=== PATIENT | female | born 1970 | race African-American/Black ===

== ENCOUNTER → 2019-05-05 | Outpatient (CLI) | payer BC, SELFPAY ==
--- NOTE | 2019-05-05 13:00 | US_ITS ---
STUDY: THYROID ULTRASOUND REASON FOR EXAM: Female, 49 years old. Goiter. TECHNIQUE: Ultrasound evaluation of the thyroid was performed with real-time and static eduardo-scale imaging. COMPARISON: None. FINDINGS: RIGHT LOBE: The right lobe of the thyroid gland measures 4.6 x 1.7 x 1.6 cm. There is a heterogeneous echotexture. There is a 0.4 x 0.4 x 0.2 cm mixed cystic and solid nodule in the lower pole. There is normal vascularity on Doppler imaging. LEFT LOBE: The left lobe of the thyroid gland measures 5.4 x 2.8 x 2.5 cm. There is a heterogeneous echotexture. There is a questionable 1.3 x 1.2 x 0.8 cm isoechoic nodule in the lower pole. This may simply be an area of heterogeneity. There is normal vascularity on Doppler imaging. ISTHMUS: The isthmus measures 0.8 cm. There is a solid isoechoic nodule with hypoechoic rim and central irregular areas of hypoechogenicity in the right isthmus measuring 1.4 x 1.1 x 1.1 cm. This demonstrates interval nodular vascularity. The regional lymph nodes are normal. US/Thyroid IMPRESSION: Prominent heterogenous thyroid with nodules as described above. Largest nodule is categorized as TR 3, mildly suspicious. This does not require further follow-up by ACR TI-RADS criteria. Electronically Signed: Kingston López DO at 18:23 EDT Tel [phone], Service support ,
== END | disposition home or self-care (01) ==
LOC: US 12:57
PROVIDERS: Family Provider Nurse Practitioner; PCP Nurse Practitioner; Referring Provider Nurse Practitioner; Visit Provider Nurse Practitioner
DX: E04.9 Nontoxic goiter, unspecified (principal)
CPT/HCPCS: 76536

== ENCOUNTER → 2019-05-16 15:32 | Outpatient (CLI) | payer BC, SELFPAY ==
--- NOTE | 2019-05-16 15:37 | RAD_ITS ---
STUDY: X-RAY CHEST REASON FOR EXAM: Female, 49 years old. Shortness of breath, worse on exertion. TECHNIQUE: Frontal and lateral views of the chest. COMPARISON: None. FINDINGS: The lungs are clear and expanded. There is no demonstrated pleural abnormality. Normal size heart. Normal mediastinum and manish. Normal visualized pulmonary arteries. Normal visualized aortic arch and descending thoracic aorta. Normal visualized thoracic spine. Normal visualized ribs, clavicles, and shoulders. There is no demonstrated abnormality of the visualized soft tissue structures of the upper abdomen. RAD/Chest PA and Lateral IMPRESSION: No active or acute cardiopulmonary disease. Electronically Signed: Jai Gan MD at 16:02 EDT , Service support ,
== END ==
PROVIDERS: Family Provider Nurse Practitioner; PCP Nurse Practitioner; Referring Provider Nurse Practitioner; Visit Provider Nurse Practitioner
DX: R06.02 Shortness of breath (principal)
CPT/HCPCS: 71046

== ENCOUNTER → 2019-05-28 15:12 | Outpatient (CLI) | payer BC, SELFPAY | LOC: CVS 15:13 | PROVIDERS: Family Provider Nurse Practitioner; PCP Nurse Practitioner; Referring Provider Nurse Practitioner; Visit Provider Nurse Practitioner | DX: R94.31 Abnormal electrocardiogram [ECG] [EKG] (principal) | CPT/HCPCS: 93306 ==

== ENCOUNTER → 2020-11-30 17:00 | Outpatient (CLI) | payer BC, SELFPAY ==
--- NOTE | 2020-11-30 16:43 | BI_ITS ---
MAMMOGRAPHY - BILATERAL SCREENING REASON FOR EXAM: Female, 50 years old. Routine annual screening examination. PERTINENT HISTORY: Aunt with breast cancer. TECHNIQUE: Digital bilateral breast lizbeth (3D mammographic acquisition) in the CC and MLO projections. 2-D mediolateral oblique (MLO) and craniocaudad (CC) views of both breasts were obtained. CAD: Full Field Digital Mammography with Computer Added Detection was performed. COMPARISON: Comparison is made with prior study dated 04/20/2014. FINDINGS: Breast Composition: The breasts are almost entirely fatty. There are no dominant masses or suspicious calcifications. No other significant abnormalities are identified. There has been no significant change since the prior study. BI/SCRN MAMM (CAD)W/LIZBETH BILAT IMPRESSION: Stable bilateral screening mammogram. Yearly follow-up mammogram recommended. (A) ASSESSMENT CATEGORY: BIRADS Category 1: Negative. A letter regarding these results will be sent to the patient by the facility within 30 days. Approximately 10% of breast cancers are not detected by mammography. A normal mammogram should not delay biopsy of a clinically suspicious abnormality. [id number] Electronically Signed: Ayaz Fu MD at 8:38 EST , Service support ,
== END ==
PROVIDERS: PCP Nurse Practitioner; Referring Provider Nurse Practitioner; Visit Provider Nurse Practitioner
DX: Z12.31 Encounter for screening mammogram for malignant neoplasm of breast (principal)
CPT/HCPCS: 77063; 77067

== ENCOUNTER 2021-01-20 12:59 | Outpatient (CLI) | payer BC, SELFPAY ==
[2021-01-19 13:27] VITALS: BMI 46.7
[2021-01-20 13:15] VITALS: BP 157/83; PULSE 71; RESP 16; TEMP 36; O2SAT 100; BMI 45.1
[2021-01-20 14:20] VITALS: BP 136/81; PULSE 63; RESP 16; TEMP 36.1; O2SAT 99
[2021-01-20 14:50] VITALS: BP 142/75; PULSE 69; RESP 16; TEMP 36; O2SAT 99
[2021-01-20 15:11] VITALS: BP 126/67; PULSE 63; RESP 16; TEMP 36.1; O2SAT 98
[2021-01-20 15:41] VITALS: BP 144/77; PULSE 65; RESP 16; TEMP 36; O2SAT 99
[2021-01-20 16:11] VITALS: BP 120/75; PULSE 73; RESP 16; TEMP 35.9; O2SAT 99
== END 2021-01-20 16:25 | disposition home or self-care (01) ==
LOC: MS2OUT 13:00 → MS2 13:01
PROVIDERS: PCP Nurse Practitioner; Referring Provider Nurse Practitioner Acute Care; Visit Provider Nurse Practitioner Acute Care
DX: U07.1 COVID-19 (principal)
CPT/HCPCS: J7050; M0239; Q0245

== ENCOUNTER → 2021-03-23 13:49 | Outpatient (CLI) | payer BC, SELFPAY ==
--- NOTE | 2021-03-23 13:52 | ECHOL_ITS ---
Reason For Study: Narrowed Pulse Pressure, other Signs/symptoms involving circulatory and respiratory systems Procedure This was a limited 2D transthoracic echocardiogram. Exam performed in department. Left Ventricle Normal LV size. Left ventricular systolic function is normal. The estimated ejection fraction is 60 %. No regional wall motion abnormalities noted. Right Ventricle Normal RV size. Normal systolic function. Atria Normal left atrium. Normal right atrium. Mitral Valve Normal mitral valve. Tricuspid Valve Normal tricuspid valve. Aortic Valve Normal aortic valve. Trisinus/trileaflet aortic valve. Pulmonic Valve Normal pulmonic valve. Great Vessels Normal aortic root. The pulmonary artery is normal size. Normal inferior vena cava. Pericardium/Pleural No pericardial effusion. MMode/2D Measurements & Calculations LVIDd: 4.9 cm IVSd: 1.2 cm Ao root diam: 2.7 cm LVIDs: 2.8 cm LVPWd: 0.99 cm RVDd: 3.2 cm FS: 44.2 % LAV(MOD-bp): 46.2 ml LA A4 area: 15.7 cm2 LA dimension(2D): 3.9 cm LAV(MOD-bp) Indexed: 21.8 ml/m2 LAV(MOD-sp2): 46.9 ml LAV(MOD-sp4): 44.2 ml RA A4 area: 13.7 cm2 ECHO/Echo, Limited Study Interpretation Summary Normal LV size. Left ventricular systolic function is normal. The estimated ejection fraction is 60 %. Structurally normal valves. Ordering Physician: Macarena Woodard Referring Physician: Macarena Woodard Performed By: Chery Olea, KATIA, RVT
== END ==
LOC: CVS 13:50
PROVIDERS: PCP Nurse Practitioner; Referring Provider Nurse Practitioner; Visit Provider Nurse Practitioner
DX: R09.89 Other specified symptoms and signs involving the circulatory and respiratory systems (principal)
CPT/HCPCS: 93308

== ENCOUNTER → 2021-10-20 07:16 | Outpatient (CLI) | payer BC, SELFPAY ==
[2021-10-20 11:01] LABS: Absolute Lymphocyte Count 3.22 X10^3/uL (0.83-4.51); Absolute Neutrophil Count 5.6 X10^3/uL (2.0-7.7); Basophil# 0.05 X10^3/uL; Basophil% 0.5 % (0-1); Eosinophil# 0.36 X10^3/uL; Eosinophils% 3.6 % (0-5); Hematocrit 40.5 % (37-47); Lymphocyte # 3.22 X10^3/ul (0.83-4.51); Lymphocyte % 32.4 % (19-41); Mean Corp Hgb Conc 32.1 g/dL (32-36); Mean Corpuscular Hgb 24.3 pg (27.0-32.0); Mean Corpuscular Volume 75.8 fL (81-99); Monocyte# 0.65 X10^3/uL; Monocyte% 6.5 % (0-10); NRBC Flagged by Analyzer 0 % (0-5); Neutrophil # 5.61 X10^3/uL (2.7-7.7); Neutrophil % 56.5 % (47-70); Platelet Count 235 K/mm3 (150-450); RBC Distribution Width CV 16.9 % (11.6-14.6); RBC Distribution Width SD 45.7 fl (35.1-43.9); Red Blood Count 5.34 M/mm3 (4.2-5.4); White Blood Count 9.9 K/mm3 (4.4-11.0)
[2021-10-20 11:20] LABS: Vitamin B12 216 pg/mL (211-911); Vitamin D,25 Hydroxy 34.3 ng/mL
[2021-10-20 11:29] LABS: ALB/GLOB Ratio 0.9 RATIO (0.9-2.4); AST(SGOT) 13 U/L (15-37); Alanine Aminotransfer ALT/SGPT 24 U/L (13-56); Albumin, Serum 3.5 g/dL (3.2-5.0); Alkaline Phosphatase 73 U/L (45-117); Anion Gap 5 (5-15); BUN 8 mg/dL (7-18); BUN/Creat Ratio 7.6 RATIO (10-20); Chloride 107 mmol/L (98-107); Cholesterol 173 mg/dL (200); Creatinine, Serum 1.05 mg/dL (0.55-1.02); EST Glomerular Filtration Rate 58 mL/min (>60); Est Glom Filt Rate - Afr Amer 70 mL/min (>60); Glucose 113 mg/dL (74-106); High Density Lipoprotein 32 mg/dL; Potassium 3.9 mmol/L (3.5-5.1); Protein, Total 7.5 g/dL (6.4-8.2); Sodium Level 140 mmol/L (136-145); Triglycerides 121 mg/dL; Very Low Density Lipoprotein 24 mg/dL (5-40)
== END ==
PROVIDERS: PCP Nurse Practitioner; Referring Provider Nurse Practitioner; Visit Provider Nurse Practitioner
DX: E11.65 Type 2 diabetes mellitus with hyperglycemia (principal)
CPT/HCPCS: 36415; 80053; 80061; 82306; 82607; 82746; 84443; 85025

== ENCOUNTER → 2022-08-29 | Outpatient (CLI) | payer OTHER, SELFPAY ==
[2022-08-29 10:03] LABS: Absolute Lymphocyte Count 3.94 X10^3/uL (0.83-4.51); Absolute Neutrophil Count 4.5 X10^3/uL (2.0-7.7); Basophil# 0.04 X10^3/uL; Basophil% 0.4 % (0-1); Eosinophil# 0.42 X10^3/uL; Eosinophils% 4.4 % (0-5); Hematocrit 40.1 % (37-47); Lymphocyte # 3.94 X10^3/ul (0.83-4.51); Lymphocyte % 41.4 % (19-41); Mean Corp Hgb Conc 32.4 g/dL (32-36); Mean Corpuscular Hgb 24.4 pg (27.0-32.0); Mean Corpuscular Volume 75.4 fL (81-99); Mean Platelet Vol. 11.9 fl (6.2-12.0); Monocyte# 0.54 X10^3/uL; Monocyte% 5.7 % (0-10); NRBC Flagged by Analyzer 0 % (0-5); Neutrophil # 4.54 X10^3/uL (2.7-7.7); Neutrophil % 47.7 % (47-70); Platelet Count 216 K/mm3 (150-450); RBC Distribution Width CV 16.1 % (11.6-14.6); RBC Distribution Width SD 43.6 fl (35.1-43.9); Red Blood Count 5.32 M/mm3 (4.2-5.4); White Blood Count 9.5 K/mm3 (4.4-11.0)
[2022-08-29 10:27] LABS: Vitamin B12 865 pg/mL (211-911); Vitamin D,25 Hydroxy 33.6 ng/mL
[2022-08-29 10:38] LABS: Hemoglobin A1c 6.6 % (3.8-5.6)
[2022-08-29 10:41] LABS: ALB/GLOB Ratio 0.9 RATIO (0.9-2.4); AST(SGOT) 13 U/L (15-37); Alanine Aminotransfer ALT/SGPT 23 U/L (13-56); Albumin, Serum 3.6 g/dL (3.2-5.0); Alkaline Phosphatase 67 U/L (45-117); Anion Gap 5 (5-15); BUN 9 mg/dL (7-18); BUN/Creat Ratio 8.2 RATIO (10-20); Calcium,Total 9.2 mg/dL (8.5-10.1); Chloride 109 mmol/L (98-107); Cholesterol 186 mg/dL (200); EST Glomerular Filtration Rate 55 mL/min (>60); Est Glom Filt Rate - Afr Amer 67 mL/min (>60); Globulin 3.8 g/dL (2.2-4.2); Glucose 120 mg/dL (74-106); High Density Lipoprotein 29 mg/dL; Potassium 3.9 mmol/L (3.5-5.1); Protein, Total 7.4 g/dL (6.4-8.2); Sodium Level 140 mmol/L (136-145); Thyroid Stim Hormone (TSH) 2.01 uIU/mL (0.358-3.74); Triglycerides 156 mg/dL; Very Low Density Lipoprotein 31 mg/dL (5-40)
== END | disposition home or self-care (01) ==
PROVIDERS: PCP Nurse Practitioner Family; Referring Provider Nurse Practitioner Family; Visit Provider Nurse Practitioner Family
DX: E11.9 Type 2 diabetes mellitus without complications (principal); E53.8 Deficiency of other specified B group vitamins
CPT/HCPCS: 36415; 80053; 80061; 82306; 82607; 82746; 83036; 84443; 85025

== ENCOUNTER → 2022-12-01 | Outpatient (CLI) | payer OTHER, SELFPAY ==
--- NOTE | 2022-12-01 09:37 | BI_ITS ---
MAMMOGRAPHY - BILATERAL SCREENING REASON FOR EXAM: Female, 52 years old. Routine annual screening examination. PERTINENT HISTORY: Aunt with breast cancer. TECHNIQUE: Digital bilateral breast lizbeth (3D mammographic acquisition) in the CC and MLO projections. 2-D mediolateral oblique (MLO) and craniocaudad (CC) views of both breasts were obtained. CAD: Full Field Digital Mammography with Computer Added Detection was performed. COMPARISON: Comparison is made with prior study dated 11/30/2020 and 04/20/2014. FINDINGS: Breast Composition: The breasts are almost entirely fatty. There are no dominant masses or suspicious calcifications. No other significant abnormalities are identified. There has been no significant change since the prior study. BI/SCRN MAMM (CAD)W/LIZBETH BILAT IMPRESSION: Stable bilateral screening mammogram. Yearly follow-up mammogram recommended. (A) ASSESSMENT CATEGORY: BIRADS Category 1: Negative. A letter regarding these results will be sent to the patient by the facility within 30 days. Approximately 10% of breast cancers are not detected by mammography. A normal mammogram should not delay biopsy of a clinically suspicious abnormality. [id number] Electronically Signed: Ayaz Fu MD at 11:01 EST ,
== END | disposition home or self-care (01) ==
PROVIDERS: PCP Nurse Practitioner Family; Referring Provider Nurse Practitioner Family; Visit Provider Nurse Practitioner Family
DX: Z12.31 Encounter for screening mammogram for malignant neoplasm of breast (principal); Z80.3 Family history of malignant neoplasm of breast
CPT/HCPCS: 77063; 77067

== ENCOUNTER → 2023-03-29 | Outpatient (CLI) | payer OTHER, SELFPAY ==
--- NOTE | 2023-03-29 14:29 | US_ITS ---
STUDY: THYROID ULTRASOUND REASON FOR EXAM: Female, 52 years old. Thyroid nodule. Large thyroid on physical exam. TECHNIQUE: Ultrasound evaluation of the thyroid was performed with real-time and static eduardo-scale imaging. COMPARISON: May 05, 2019. FINDINGS: RIGHT LOBE: The right lobe of the thyroid gland measures 4.8 x 1.8 x 1.8 cm. There is a heterogeneous echotexture. There is a 0.9 x 0.8 x 0.7 soft tissue mass in the medial thyroid which may be part of a large mass seen in the right isthmus. This is isoechoic with small adjacent cystic structure. LEFT LOBE: The left lobe of the thyroid gland measures 6.0 x 2.9 x 3 point cm. There is a heterogeneous echotexture. There are multiple foci which may represent nodules. The largest measures 2.1 x 2.3 x 2.1 cm and is isoechoic to the remainder of the thyroid. ISTHMUS: The isthmus measures 0.9 cm in the right isthmus there is a mixed solid and cystic 1.6 x 1.6 x 1.5 cm nodule. The regional lymph nodes are normal. US/Thyroid IMPRESSION: Absence of a small hypoechoic anechoic nodule in the right thyroid seen on the previous study. Remainder of the findings appear grossly normal and unchanged. The nodules are considered mildly suspicious, TR 3. Follow-up ultrasound at 2 and 4 years is recommended. Electronically Signed: Kingston López DO at 19:06 EDT ,
== END | disposition home or self-care (01) ==
LOC: US 14:27
PROVIDERS: PCP Nurse Practitioner Family; Referring Provider Nurse Practitioner Family; Visit Provider Nurse Practitioner Family
DX: E04.1 Nontoxic single thyroid nodule (principal)
CPT/HCPCS: 76536

== ENCOUNTER → 2024-01-09 | Outpatient (CLI) | payer OTHER, SELFPAY ==
--- NOTE | 2024-01-09 16:15 | BI_ITS ---
MAMMOGRAPHY - BILATERAL SCREENING REASON FOR EXAM: Female, 53 years old. Routine annual screening examination. PERTINENT HISTORY: Aunt with breast cancer. TECHNIQUE: Digital bilateral breast lizbeth (3D mammographic acquisition) in the CC and MLO projections. 2-D mediolateral oblique (MLO) and craniocaudad (CC) views of both breasts were obtained. CAD: Full Field Digital Mammography with Computer Added Detection was performed. COMPARISON: Comparison is made with prior study dated December 01, 2022. FINDINGS: Breast Composition: The breasts are almost entirely fatty. There are no dominant masses or suspicious calcifications. No other significant abnormalities are identified. There has been no significant change since the prior study. BI/SCRN MAMM (CAD)W/LIZBETH BILAT IMPRESSION: Stable bilateral screening mammogram. Yearly follow-up mammogram recommended. (A) ASSESSMENT CATEGORY: BIRADS Category 1: Negative. A letter regarding these results will be sent to the patient by the facility within 30 days. Approximately 10% of breast cancers are not detected by mammography. A normal mammogram should not delay biopsy of a clinically suspicious abnormality. [id number] Electronically Signed: Ayaz Fu MD at 8:41 EST ,
== END | disposition home or self-care (01) ==
LOC: OPBI 16:15
PROVIDERS: PCP Nurse Practitioner Family; Referring Provider Nurse Practitioner Family; Visit Provider Nurse Practitioner Family
DX: Z12.31 Encounter for screening mammogram for malignant neoplasm of breast (principal)
CPT/HCPCS: 77063; 77067

== ENCOUNTER → 2025-04-09 | Outpatient (CLI) | payer OTHER, SELFPAY ==
--- NOTE | 2025-04-09 13:53 | BI_ITS ---
EXAM: SCRN MAMM (CAD)W/LIZBETH BILAT DATE: 04/09/2025 CLINICAL HISTORY: F, Age 55 y/o , SCRN MAMM (CAD)W/LIZBETH BILAT Aunt with breast cancer. BREAST CANCER RISK ASSESSMENT: Not assessed. TECHNIQUE: Bilateral screening digital breast tomosynthesis with 2D and 3D images. Computer aided detection. COMPARISON: Prior exam(s) dated prior study dated January 10, 2024.. FINDINGS: TISSUE DENSITY: The breast tissue is almost entirely fatty. Bilateral Breast Mammographic Findings: No significant masses, calcifications or other abnormalities are identified. No suspicious masses, areas of developing architectural distortion, or suspicious calcifications. There has been no significant interval change. BI/SCRN MAMM (CAD)W/LIBZETH BILAT IMPRESSION: OVERALL FINAL ASSESSMENT: BIRADS 1 NEGATIVE RECOMMENDATION: Routine annual follow-up in 1 Year A letter with findings and recommendations will be mailed to the patient. Reading Location: [facility]
== END | disposition home or self-care (01) ==
LOC: OPBI 13:52
PROVIDERS: PCP Nurse Practitioner Family; Referring Provider Nurse Practitioner Family; Visit Provider Nurse Practitioner Family
DX: Z12.31 Encounter for screening mammogram for malignant neoplasm of breast (principal)
CPT/HCPCS: 77063; 77067

== ENCOUNTER → 2025-08-10 | Outpatient (CLI) | payer OTHER, SELFPAY ==
--- OUTSIDE RECORDS SUMMARY | 2025-05-19 06:09 | XMS RPT_ITS ---
Author Name Auto Generated Organization OH[facility] Care Team Providers Care Applique Sewer Name Role Phone SINA MENDEZ, MAXIMILIAN Primary Care Unavail jacky PANDYA MD, DR MOISE Garza Attending Unavailab VAISHALI Miranda DO Attending Unavailable SHE SANCHEZ, DR MORALES Primary Care Unavailab kelley MENDEZ, MAXIMILIAN Primary Care Unavail jacky SALMERON DO, EMILIE Oliva Attending Unavailable PROBLEMS No Problem Records Found PROCEDURES No Procedure Records Found RESULTS XR FLUORO GUIDANCE FOR THERAPY INJECTION Observed: 05/19/2025 9:46 AM Status: F Source: [facility] ORIGINAL Images acquired, not reported on this accession number. CUR Observed: 09/27/2024 4:12 PM Status: F Source: [facility] . MICRO - Microbiology PROCEDURE: Urine Culture [O1 *1] SOURCE: Urine BODY SITE: COLLECTED DATE/TIME: 09/27/2024 16:12 EST RECEIVED DATE/TIME: 09/28/2024 14:18 EST START DATE/TIME: 09/28/2024 14:18 EST FREE TEXT SOURCE: FINAL REPORTS Final Report [] Verified Date/Time/Personnel: 09/30/2024 07:30 EST No growth at 48 hours. PRELIMINARY REPORTS Preliminary Report [] Verified Date/Time/Personnel: 09/29/2024 07:23 EST No growth to date Order Comments O1: Urine Culture Added by Discern Performing Locations *1: This test was performed at: [facility], [address] [place] [address], [id number] , [place] UA Collected: 09/27/2024 4:12 PM Status: F Source: [facility] TYPE CODE TESTS RESULT OUT OF RANGE REFERENCE UNITS LAB SPCUA(LOINC) UA Specimen Type Clean Catch LAB CLRUA(LOINC) UA Color Yellow LAB APPUA(LOINC) UA Appear Slightly Cloudy Abnormal Clear LAB SGUA(LOINC) UA Spec Grav 1.020 1.015-1.025 LAB GLUA(LOINC) UA Glucose Negative Negative mg/dL LAB BILUA(LOINC) UA Bili Negative Negative LAB KETUA(LOINC) UA Ketones Negative Negative mg/dL LAB BLDUA(LOINC) UA Blood Small Abnormal Negative LAB PHUA(LOINC) UA pH 6.0 5.0 - 8.0 LAB PROUA(LOINC) UA Protein Negative Negative mg/dL LAB UROUA(LOINC) UA Urobilinogen 0.2 0.2-1.0 E.U ./dL LAB NITUA(LOINC) UA Nitrite Negative Negative LAB LEUUA(LOINC) UA Leuk Est Moderate Abnormal Negative Performed By: #### UAMICAO, UA #### [address] [address] .URINALYSIS MICROSCOPIC (AO) Collected: 09/27/2024 4: 12 PM Status: F Source: [facility] TYPE CODE TESTS RESULT OUT OF RANGE REFERENCE UNITS LAB WBCUA(LOINC) UA WBC LOADED Abnormal None Seen /hpf LAB RBCUA(LOINC) UA RBC 0-5 Abnormal None Seen /hpf LAB EPIUA(LOINC) UA Squam Epithelial 5-10 Abnormal None Seen /hpf LAB BACUA(LOINC) UA Bacteria 2+ Abnormal /hpf Performed By: #### UAMICAO, UA #### [address] [address] [address] ABDOMEN/PELVIS W/O CONTRAST Observed: 09/24/2024 9:44 PM Status: F Source: [facility] ORIGINAL EXAMINATION: CT OF THE ABDOMEN AND PELVIS WITHOUT CONTRAST 09/24/2024 10:04 pm TECHNIQUE: CT of the abdomen and pelvis was performed without the administration of intravenous contrast. Multiplanar reformatted images are provided for review. Automated exposure control, iterative reconstruction, and/or weight based adjustment of the mA/kV was utilized to reduce the radiation dose to as low as reasonably achievable. COMPARISON: None. HISTORY: ORDERING SYSTEM PROVIDED HISTORY: Reason for Exam: Left flank pain abdominal pain FINDINGS: Visualized portion of the lower chest demonstrates no acute abnormality. Liver is within normal limits for size and demonstrates a smooth contour. Status post cholecystectomy. No intra or extrahepatic bile duct dilation. The spleen, pancreas and adrenal glands are unremarkable. Kidneys are within normal limits for size. No hydroureteronephrosis or nephroureterolithiasis is definitively identified bilaterally however there is limited evaluation of the distal ureters secondary to streak artifact from a left total hip arthroplasty hardware. The urinary bladder is largely decompressed. The uterus appears age-appropriate with an intrauterine device in place. The stomach is partially distended with ingested contents. Bowel gas is noted to the level of the rectum in a nonobstructive pattern. No dilated loops of bowel. The appendix is visualized and unremarkable. No free air or fluid. No abdominal or pelvic adenopathy. Vascular structures appear unremarkable on this limited noncontrast study. No acute soft tissue or osseous abnormalities are noted. IMPRESSION: No acute abnormality within the abdomen or pelvis, however limited evaluation of the distal ureters for calculus secondary to metallic streak artifact of left total hip arthroplasty. Interpreted by: Felix Juarez Preliminary Report By: eFlix Juarez Electronically signed By Felix Juarez Dictated Date: 09/24/2024 10:07:13 PM Prelim Date: 09/24/2024 10:10:58 PM Sign Date: 09/24/2024 10:10:58 PM Ordering Provider: VAISHALI CAZARES XR CHEST 1 VIEW Observed: 09/24/2024 9:44 PM Status: F Source: [facility] ORIGINAL EXAMINATION: ONE XRAY VIEW OF THE CHEST09/24/2024 10:03 pm CHEST ONE VIEW AP/PA EXAM DESCRIPTION: COMPARISON: None available HISTORY: ORDERING SYSTEM PROVIDED HISTORY: Reason for Exam: CP FINDINGS: Single AP radiograph of the chest was obtained. The lungs are clear without evidence of focal consolidation, mass, pleural effusion, or pneumothorax. The cardiomediastinal silhouette is unremarkable. The bones and soft tissues are unremarkable. IMPRESSION: No radiographic evidence of acute cardiopulmonary disease. Interpreted by: Kai Phelan MD Preliminary Report By: Kai Phelan MD Electronically signed By Kai Phelan MD Dictated Date: 09/24/2024 10:06:53 PM Prelim Date: 09/24/2024 10:07:05 PM Sign Date: 09/24/2024 10:07:05 PM Ordering Provider: VAISHALI HUBBARD Observed: 09/24/2024 9:44 PM Status: F Source: [facility] . MICRO - Microbiology PROCEDURE: Urine Culture [O1 *1] SOURCE: Urine BODY SITE: COLLECTED DATE/TIME: 09/24/2024 21:44 EST RECEIVED DATE/TIME: 09/25/2024 15:40 EST START DATE/TIME: 09/25/2024 15:40 EST FREE TEXT SOURCE: FINAL REPORTS Final Report [] Verified Date/Time/Personnel: 09/26/2024 14:30 EST >100,000 cfu/ml Multiple bacterial morphotypes present. Probable Contamination. Suggest recollection if clinically indicated. Order Comments O1: Urine Culture Added by Discern Performing Locations *1: This test was performed at: [facility], [address] [place] [address], [facility] , CBC Collected: 9:44 PM Status: F Source: [facility] TYPE CODE TESTS RESULT OUT OF RANGE REFERENCE UNITS LAB WBC(LOINC) WBC 12.4 High 4.5-10.8 10 3/mcL LAB RBCCT(LOINC) RBC 5.49 High 4.10-5.30 10 6/mcL LAB HGB(LOINC) Hgb 13.7 12.0-16.0 G/dL LAB HCT(LOINC) Hct 42.0 34.0-46.0 % LAB MCV(LOINC) MCV 76.6 Low 80.0-99.0 fL LAB MCH(LOINC) MCH 24.9 Low 27.0-33.0 pg LAB MCHC(LOINC) MCHC 32.5 32.0-36.0 G/dL LAB RDW(LOINC) RDW 16.5 High 11.5-15.5 % LAB PLT(LOINC) Platelet 187 150-450 10 3/mcL LAB MPV(LOINC) MPV 9.0 6.6-10.5 fL Performed By: #### STEPHANIE, CBC, ANEU, ADIFF, LIP, GFR, TROPHS, CMP #### [address] [address] .AUTO DIFF Collected: 09/24/2024 9:44 PM Status: F Source: [facility] TYPE CODE TESTS RESULT OUT OF RANGE REFERENCE UNITS LAB YURY(LOINC) Neutrophil % 53.2 50.0-75.0 % LAB LYM(LOINC) Lymphocyte % 34.5 20.0-40.0 % LAB MON(LOINC) Monocyte % 6.9 2.0-13.0 % LAB EO(LOINC) Eosinophil % 4.8 0.0-7.0 % LAB BAS(LOINC) Basophil % 0.6 0.0-2.5 % LAB ABLYM(LOINC) Lymphocyte, Absolute 4.3 0.9-4.3 10 3/mcL LAB MONIK(LOINC) Monocyte, Absolute 0.9 0.1-1.4 10 3/mcL LAB AEOS(LOINC) Eosinophil, Absolute 0.6 0.0-0.7 10 3/mcL LAB ABAS(LOINC) Basophil, Absolute 0.1 0.0-0.2 10 3/mcL Performed By: #### STEPHANIE, CBC, ANEU, ADIFF, LIP, GFR, TROPHS, CMP #### [address] [address] .NEUABS Collected: 9:44 PM Status: F Source: [facility] TYPE CODE TESTS RESULT OUT OF RANGE REFERENCE UNITS LAB ANEU(LOINC) Neutrophil, Absolute 6.6 2.3-8.1 10 3/mcL Performed By: #### STEPHANIE, CBC, ANEU, ADIFF, LIP, GFR, TROPHS, CMP #### [address] [address] .MDW Collected: 09/24/2024 9:44 PM Status: F Source: [facility] TYPE CODE TESTS RESULT OUT OF RANGE REFERENCE UNITS LAB MDW(LOINC) Monocyte Distribution Width 20.11 High 0.00-20.00 Result Comment: For adults i n ED, MDW>20.0 may be associated with a higher risk of sepsis during the first 12hrs of hospital admission Performed By: #### W, CBC, ANEU, ADIFF, LIP, GFR, TROPHS, CMP #### [address] [place], [place] [address] LIP Collected: 09/24/2024 9:44 PM Status: F Source: [facility] TYPE CODE TESTS RESULT OUT OF RANGE REFERENCE UNITS LAB LIP(LOINC) Lipase Level 98 High 16-77 U/L Performed By: #### STEPHANIE, CBC, ANEU, ADIFF, LIP, GFR, TROPHS, CMP #### [address] [place], [place] [address] CMP Collected: 09/24/2024 9:44 PM Status: F Source: [facility] TYPE CODE TESTS RESULT OUT OF RANGE REFERENCE UNITS LAB GLU(LOINC) Glucose Level 91 70-105 mg/dL LAB NA(LOINC) Sodium Level 143 136-145 mmol/L LAB K(LOINC) Potassium Level 3.9 3.5-5.1 mmol/L LAB CL(LOINC) Chloride 105 98-107 mmol/L LAB CO2(LOINC) CO2 34 High 22-29 mmol/L LAB EBAL(LOINC) Electrolyte Balance 4.0 4.0-15.0 mEq/L LAB BUN(LOINC) BUN 9 7-18 mg/dL LAB CRE(LOINC) Creatinine Lvl (s) 1.28 High 0.55-1.02 mg/dL Result Comment: Testing perf ormed on Siemens Dimension EXL analyzer using a modified kinetic Jessica technique. LAB BC(LOINC) BUN/Creatinine Ratio 7 7-27 ratio LAB CA(LOINC) Calcium Lvl 9.4 8.4-10.2 mg/dL LAB PROT(LOINC) Total Protein 8.0 6.4-8.2 G/dL LAB ALB(LOINC) Albumin Level 4.3 3.5-5.0 G/dL LAB GLB(LOINC) Globulin 3.7 G/dL LAB AG(LOINC) A/G Ratio 1.2 1.1-2.5 ratio LAB BILT(LOINC) Bili Total 0.5 0.2-1.0 mg/dL Result Comment: Use of this assay is not recommended for patients undergoing treatment with eltrombopag due to the potential for falsely elevated results. LAB AP(LOINC) Alk Phos 104 40-135 U/L LAB AST(LOINC) AST/SGOT 16 10-40 U/L LAB ALT(LOINC) ALT/SGPT 24 14-59 U/L Performed By: #### MDW, CBC, ANEU, ADIFF, LIP, GFR, TROPHS, CMP #### [address] [address] .GFR Collected: 4 9:44 PM Status: F Source: [facility] TYPE CODE TESTS RESULT OUT OF RANGE REFERENCE UNITS LAB GFRAA(LOINC) GFR 52 ml/min/1. 73sqm Result Comment: GFR Population mean for , Non- Americans Ages 20-29 = 116 mL/min/1.73 sq.m. Ages 30-39 = 107 mL/min/1.73 sq.m. Ages 40-49 = 99 mL/min/1.73 sq.m. Ages 50-59 = 93 mL/min/1.73 sq.m. Ages 60-69 = 85 mL/min/1.73 sq.m. Ages 70+ = 75 mL/min/1.73 sq.m. Chronic Kidney Disease: Less than 60 mL/min/1.73 square meters End Stage Renal Disease: Less than 15 mL/min/1.73 square meters LAB GFRNO(LOINC) GFR Non- 43 ml/min/1. 73sqm Result Comment: GFR Population mean for , Non- Americans Ages 20-29 = 116 mL/min/1.73 sq.m. Ages 30-39 = 107 mL/min/1.73 sq.m. Ages 40-49 = 99 mL/min/1.73 sq.m. Ages 50-59 = 93 mL/min/1.73 sq.m. Ages 60-69 = 85 mL/min/1.73 sq.m. Ages 70+ = 75 mL/min/1.73 sq.m. Chronic Kidney Disease: Less than 60 mL/min/1.73 square meters End Stage Renal Disease: Less than 15 mL/min/1.73 square meters Performed By: #### STEPHANIE, CBC, ANEU, ADIFF, LIP, GFR, TROPHS, CMP #### [address] [address] TROPHS Collected: 09/24/2024 9:44 PM Status: F Source: [facility] TYPE CODE TESTS RESULT OUT OF RANGE REFERENCE UNITS LAB HSTROP(LOINC) High Sensitivity Troponin I 6 0-51 ng/L Result Comment: High Sensiti ve Troponin I Reference Ranges: Female: 0-51 ng/L Male: 0-76 ng/L Testing performed on [employer] using a homogeneous sandwich chemiluminescent immunoassay based on [employer] technology. Performed By: #### STEPHANIE, CBC, ANEU, ADIFF, LIP, GFR, TROPHS, CMP #### [address] [place], [place] [address] UA Collected: 09/24/2024 9:44 PM Status: F Source: [facility] TYPE CODE TESTS RESULT OUT OF RANGE REFERENCE UNITS LAB SPCUA(LOINC) UA Specimen Type Clean Catch LAB CLRUA(LOINC) UA Color Yellow LAB APPUA(LOINC) UA Appear Clear Clear LAB SGUA(LOINC) UA Spec Grav 1.025 1.015-1.025 LAB GLUA(LOINC) UA Glucose Negative Negative mg/dL LAB BILUA(LOINC) UA Bili Negative Negative LAB KETUA(LOINC) UA Ketones Negative Negative mg/dL LAB BLDUA(LOINC) UA Blood Trace Abnormal Negative LAB PHUA(LOINC) UA pH 6.5 5.0 - 8.0 LAB PROUA(LOINC) UA Protein Negative Negative mg/dL LAB UROUA(LOINC) UA Urobilinogen 0.2 0.2-1.0 E.U ./dL LAB NITUA(LOINC) UA Nitrite Negative Negative LAB LEUUA(LOINC) UA Leuk Est Small Abnormal Negative Performed By: #### UAMICAO, UA #### [address] [address] .URINALYSIS MICROSCOPIC (AO) Collected: 09/24/2024 9: 44 PM Status: F Source: [facility] TYPE CODE TESTS RESULT OUT OF RANGE REFERENCE UNITS LAB WBCUA(LOINC) UA WBC 10-15 Abnormal None Seen /hpf LAB RBCUA(LOINC) UA RBC 0-5 Abnormal None Seen /hpf LAB EPIUA(LOINC) UA Squam Epithelial 0-5 Abnormal None Seen /hpf LAB BACUA(LOINC) UA Bacteria 2+ Abnormal /hpf Performed By: #### UAMICAO, UA #### [facility] [address] [place], [place] [address] ALLERGIES No Allergies Records Found ENCOUNTERS ADMIT/DISCHARGE ACCOUNT NUMBER ADMITTING ENCOUNTER CLASS LOC ATION SOURCE 05/19/2025/ 5 [id number] [facility] [place]: [address]Bed: B [facility] 09/27/2024/ 4 [id number] [facility] 09/24/2024/ 4 [id number] [facility]: [facility] PAYERS ENCOUNTER GUARANTOR PAYER SUBSCRIBER SOURCE 05/19/2025 NADIRA [place]VOB: [place] [email or web address] .[email or web address]: () (WP) Primary Insurance:[facility] Number: [id number] e Date:4890-01-20Ohtl Name:[facility] Aditya [address] [place] [address]SY: NADIRA CALVOB: [id number] [place], [place] [address]Edt: () (WP) [facility] 09/27/2024 NADIRA [place]VIN: [place] [email or web address] .ORGTel: (HP) (WP) Primary Insurance:[facility] Number: [id number] e Date:1143-11-27Hnue Name:[address] [address]MW: NADIRA GALVIN: [id number] [place], [place] [address]Bew: (HP) (WP) [facility] 09/24/2024 NADIRA CALVOB: [id number] [place] [email or web address] .ORGTel: (HP) (WP) Primary Insurance[facility] Number: [id number] e Date:0722-99-01Jthd Name:[address] [address]HO: NADIRA GALVIN: [id number] [place], [place] [address]Zwz: (HP) (WP) [facility]
--- NOTE | 2025-08-10 16:07 | US_ITS ---
PROCEDURE: THYROID 08/10/2025 REASON FOR EXAM: THYROID ULTRASOUND ([id number]) : FOLLOW UP NODULES, DUE 03/2025 TECHNIQUE: Procedure Code: USTHY Modality: US Procedure: THYROID FINDINGS: Right thyroid lobe size: 5.5 x 2.2 x 1.9 cm Left thyroid lobe size: 6.6 x 3.1 x 3.2 cm Isthmus: 1.1 cm Background parenchymal echotexture is heterogeneous Nodules: Multiple bilateral nodules are present, largest are measured 1. Lobe: Right, Location: Mid, Size: 1.0 x 1.00.6 cm, Stability: Stable Composition: Solid or almost completely solid (+2) Echogenicity: Hypoechoic (+2) Margin: Smooth (+0) Shape: Wider than tall (+0) Echogenic Foci: None (+0) TI-RADS: <2 = TR 1 * 2 = TR 2 * 3 = TR 3 * 4-6 = TR 4 * >6 = TR 5 2. Lobe: Left, Location: Upper, Size: 2.7 x 2.0 x 1.1 cm, Stability: Stable Composition: Solid or almost completely solid (+2) Echogenicity: Hypoechoic (+2) Margin: Smooth (+0) Shape: Wider than tall (+0) Echogenic Foci: None (+0) TI-RADS: <2 = TR 1 * 2 = TR 2 * 3 = TR 3 * 4-6 = TR 4 * >6 = TR 5 3. Lobe: Left, Location: Lower, Size: 2.2 x 1.9 x 2.2 cm, Stability: Stable Composition: Solid or almost completely solid (+2) Echogenicity: Hypoechoic (+2) Margin: Smooth (+0) Shape: Wider than tall (+0) Echogenic Foci: None (+0) TI-RADS: <2 = TR 1 * 2 = TR 2 * 3 = TR 3 * 4-6 = TR 4 * >6 = TR 5 4. Lobe: Isthmus, Location: Isthmus, Size: 2.0 x 1.7 x 1.4 cm, Stability: Stable Composition: Solid or almost completely solid (+2) Echogenicity: Hypoechoic (+2) Margin: Smooth (+0) Shape: Wider than tall (+0) Echogenic Foci: None (+0) TI-RADS: <2 = TR 1 * 2 = TR 2 * 3 = TR 3 * 4-6 = TR 4 * >6 = TR 5 US/Thyroid IMPRESSION: Stable enlarged heterogeneous thyroid gland with bilateral and isthmus solid no dules.. No interval change since the previous study. Continuous sonographic follow-up to assess stability. RECOMMENDATION: Based on most suspicious nodule. Nodule size = largest diameter Only evaluate nodule if =>5 mm. Growth > 20% in 2 dimensions = worsening. Follow up to 4 nodules. Recommend biopsy for no more than 2 nodules. Reading Location: [id number]
== END | disposition home or self-care (01) ==
LOC: US 16:05
PROVIDERS: PCP Nurse Practitioner Family; Referring Provider Nurse Practitioner Family; Visit Provider Nurse Practitioner Family
DX: E04.1 Nontoxic single thyroid nodule (principal)
CPT/HCPCS: 76536